=== PATIENT | male | born 1980 | race Caucasian/White ===

== ENCOUNTER 2020-12-06 09:12 | Emergency (ER) | payer OTHER ==
[2020-12-06 09:51] LABS: BASOPHIL 0.7 % (0-2); EOSINOPHIL 1.1 % (0-5); HCT 46.1 % (42.0-52.0); HGB 15.7 g/dl (13.2-18.0); LYMPHOCYTE 24.1 % (15-48); MCH 30.8 pg (25.0-31.0); MCHC 34.1 g/dL (32.0-36.0); MCV 90.4 fL (78.0-100.0); MONOCYTE 6.6 % (0-12); MPV 9.6 fL (6.0-9.5); NEUTROPHIL 66.7 % (41-80); NRBC 0; PLT 266 K/uL (150-400); RDW 12.7 % (11.5-14.0); WBC 13.7 K/uL (4.0-10.5)
[2020-12-06 10:06] LABS: INR 1.05 (0.9-1.2); PROTHROMBIN TIME 13.1 SECONDS (11.8-13.4)
[2020-12-06 10:14] LABS: ALBUMIN 3.5 g/dL (3.4-5.0); BILIRUBIN - TOTAL 0.6 mg/dL (0.2-1.0); BUN/CREAT RATIO (CALC) 12.6 RATIO; CREATININE 1.11 mg/dL (0.67-1.17); GLOBULIN (CALCULATION) 3.1 g/dL; POTASSIUM 4.1 mmol/L (3.5-5.1); TOTAL PROTEIN 6.6 g/dL (6.4-8.2)
== END 2020-12-06 11:27 | disposition other institution (70) ==
LOC: FER 09:12
PROVIDERS: Internal Medicine
DX: I47.1 Supraventricular tachycardia (principal); I47.2 Ventricular tachycardia; I10 Essential (primary) hypertension; Z87.891 Personal history of nicotine dependence; Z20.822 Contact with and (suspected) exposure to COVID-19
CPT/HCPCS: 36415; 71045; 78452; 80053; 84484; 85025; 85610; 85730; 93005; 93017; 94762; A9500; J0282; J1644; J2250; J7030; J7060; U0002